=== PATIENT | male | born 2000 | race African-American/Black ===

== ENCOUNTER 2024-11-24 18:54 | Outpatient (REF) | payer OTHER, SELFPAY ==
--- NOTE | ~2024-11-24 | MR_ITS ---
CLINICAL HISTORY: INSTABILITY EFFUSION MR of the left knee without contrast. No comparison. Findings: No meniscal tear is seen. The posterior cruciate ligament is intact. There is nonspecific increased signal within the ACL. The collateral ligaments are intact. The patellar and quadriceps tendons are unremarkable. No fracture or bone contusion is seen. There is no osteochondral lesion. There is lateral patellar tilt and mild lateral patellar subluxation. The trochlear groove is shallow. The patellar retinacula are intact. There is no significant joint effusion or popliteal cyst. There is mild adjacent to the distal semi tendinosis tendon that could represent and mild tendon strain. Impression: Suspect mild distal semitendinosus tendon strain. Lateral patellar tilt and subluxation with a shallow trochlear groove. Mildly increased signal within the anterior cruciate ligament is likely incidental with no definite tear. This document has been electronically signed by: Dong Magdaleno MD on 11/24/2024 20:12:06
== END 2024-11-24 18:55 | disposition home or self-care (01) ==
LOC: HO.MRI 18:54
PROVIDERS: Visit Provider Student in an Organized Health Care Education/Training Program
DX: M25.362 Other instability, left knee (principal); M25.462 Effusion, left knee
CPT/HCPCS: 73721

== ENCOUNTER → 2024-11-24 19:05 | Outpatient (BNV) | payer OTHER, SELFPAY | PROVIDERS: Visit Provider Radiology Diagnostic Radiology | DX: M22.8X2 Other disorders of patella, left knee (principal); S83.192A Other subluxation of left knee, initial encounter | CPT/HCPCS: 73721 ==